=== PATIENT | male | born 1965 | race Caucasian/White ===

== ENCOUNTER 2025-01-20 14:26 | Outpatient (CLI) | payer OTHER ==
[~2025-01-20 14:26] MED LIST: ASPI-41 PO; ATOR10TA PO; DOCU100C40 PO; LOP25T PO; OMEP40CA21 PO; PER10325T PO; TRAZ-251 PO
--- NOTE | 2025-01-20 15:07 | RADIOLOGY REPORT ---
EXAM: DI KNEE, COMP 4 VW MIN CLINICAL INDICATION: PAIN IN RIGHT KNEE TECHNIQUE: DI KNEE, COMP 4 VW MIN Comparison: None FINDINGS/IMPRESSION: There is no evidence of acute fracture or dislocation. Moderate right knee osteoarthritis. The alignment is anatomical. There is no radiopaque foreign body.
== END 2025-01-20 23:59 | disposition home or self-care (01) ==
LOC: RAD 14:26
PROVIDERS: ATTEND Nurse Practitioner Family
DX: M17.11 Unilateral primary osteoarthritis, right knee (principal); M25.561 Pain in right knee
CPT/HCPCS: 73564

== ENCOUNTER 2025-02-03 15:09 | Outpatient (CLI) | payer OTHER ==
--- NOTE | 2025-02-03 16:15 | RADIOLOGY REPORT ---
EXAM: MR MRI LOWER EXTREMITY RIGHT knee INDICATION: UNILATERAL PRIMARY OSTEOARTHRITIS, RIGHT KNEE TECHNIQUE: Multiplanar and multisequence MR imaging of the right ankle was performed in the absence of gadolinium contrast. COMPARISON: None FINDINGS: There are degenerative changes present in the medial meniscus without kristal tear. The lateral meniscus is intact The cruciate ligaments are intact. The collateral ligaments are intact. Quadriceps and patellar tendons are intact. No significant joint effusion Hyaline cartilage surfaces covering the patellofemoral joint show slight thinning without signal intensity change in subchondral bone IMPRESSION: 1. No meniscal or or ligamentous tear. 2. 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
== END 2025-02-03 23:59 | disposition home or self-care (01) ==
LOC: MRI02 15:09
PROVIDERS: ATTEND Student in an Organized Health Care Education/Training Program
DX: M17.11 Unilateral primary osteoarthritis, right knee (principal); M22.41 Chondromalacia patellae, right knee
CPT/HCPCS: 73718